=== PATIENT | female | born 1975 | race American Indian/Alaskan Native ===

== ENCOUNTER 2016-10-22 15:45 | Emergency (ER) | payer OTHER ==
[2016-10-22 16:53] VITALS: BP 127/78
[2016-10-22] MEDS ORDERED: MOTRIN PO ONE (19:54)
[2016-10-22] MEDS ORDERED: VALIUM PO ONE (19:54)
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
== END 2016-10-22 20:40 | disposition home or self-care (01) ==
LOC: ED 15:45
DX: S16.1XXA Strain of muscle, fascia and tendon at neck level, initial encounter (principal); M79.602 Pain in left arm; V49.49XA Driver injured in collision with other motor vehicles in traffic accident, initial encounter; Y92.488 Other paved roadways as the place of occurrence of the external cause; Y93.89 Activity, other specified; Y99.8 Other external cause status
CPT/HCPCS: 99282